=== PATIENT | male | born 1970 | race Caucasian/White ===

== ENCOUNTER 2021-03-17 16:24 | Outpatient (CLI) | payer BC, SELFPAY ==
[2021-03-17 16:42] VITALS: BP 139/94; PULSE 78; RESP 18; TEMP 36.9; O2SAT 99; BMI 28.0
[2021-03-17] MEDS: 0.9% Saline Lock 10 ML Syringe IV (16:47)
[2021-03-17 17:22] VITALS: BP 130/88; PULSE 83; RESP 16; TEMP 37; O2SAT 98
[2021-03-17 18:16] VITALS: BP 124/84; PULSE 79; RESP 16; TEMP 37; O2SAT 99
== END 2021-03-17 23:59 | disposition home or self-care (01) ==
LOC: MS3OUT 16:26 → MS3 16:27
PROVIDERS: Referring Provider Nurse Practitioner Adult Health; Visit Provider Nurse Practitioner Adult Health
DX: U07.1 COVID-19 (principal)
CPT/HCPCS: J7050; M0243; A4216; Q0244